=== PATIENT | female | born 1980 | race American Indian/Alaskan Native ===

== ENCOUNTER 2017-12-24 11:12 | Observation (INO) | payer OTHER ==
[2017-12-24] MEDS ORDERED: SODIUM CHLORIDE FLUSH SYRINGE 10 ML IV PRN (11:14)
[2017-12-24] MEDS ORDERED: MOTRIN PO PRN (11:14)
[2017-12-24] MEDS ORDERED: TYLENOL PO PRN (11:14)
[2017-12-24] MEDS ORDERED: ZOFRAN IV PRN (11:14)
--- NOTE | 2017-12-24 11:18 | History and Physical Report ---
History of Present Illness Date of examination: 12/24/17 Date of admission: 12/24/2017 Chief complaint: here for pp visit History of present illness: History of Present Illness: pt presents for post visit: no c/o.....magdiel depo provera given 11/12/2017 at [facility] per pt 2nd BP: 160/110.....magdiel 3rd BP: 142/100.....TReynolds Pt denies any headaches or blurry vision. She states she is doing well. I d/w elevation in blood pressrue and concern about pp pre E and need for admission. Pt advised of magnesium drip, bp meds , labs to be drawn once admitted. All risk /benefits/alternatives were d/w pt and questions were addressed and answered. She expressed understanding. Vital Signs: Patient Profile: 37 Years Old Female Height: 66 inches Weight: 119 pounds BMI: 19.21 BP sittin / 110 (left arm) Menstrual History: LMP - Character: no period since del; breast feeding Current Method of Contraception: Depo-Provera Date of Last Pap Smear: 07/21/2017 Past History : 7 Term Births: 4 Premature Births: 0 Living Children: 4 Para: 3 Mult. Births: 0 Prev : 2 Aborta: 3 Elect. Ab: 2 Spont. Ab: 1 # 1 Delivery type: EAB # 2 Delivery type: EAB # 3 Delivery date: 1998 Weeks Gestation: term Delivery type: Anesthesia type: epidural Delivery location: [place] Sex: Male weight: 6#8 Comments: no complications # 4 Delivery date: 2005 Weeks Gestation: term Delivery type: Sex: Male weight: 8#10 Comments: failure to progress # 5 Delivery date: 2014 Delivery type: SAB # 6 Delivery date: 2016 Weeks Gestation: term Delivery type: Delivery location: [place] Inf[place] Sex: Female weight: 6#4 Comments: scheduled repeat # 7 Delivery date: 11/10/2017 Weeks Gestation: 39.4 Delivery type: Anesthesia type: epidural Delivery location: [facility] Sex: male weight: 7.75 Comments: none [employer] SYSTEMS INTEGRATOR History Operations: positive x3 Abnormal PAP: negative Infection History HIV Risk Eval: no Personal hx. of genital herpes: yes Partner hx. of genital herpes: no Hx of STD: HSV Other: no out breaks, HSV + titers Active Medications: PNV () Current Allergies: No known allergies Past Medical History: Reviewed history from 07/18/2017 and no changes required: Negative Past Medical History Past Surgical History: positive x3 Family History Summary: Reviewed history and no changes required: 12/24/2017 General Comments - FH: no known family medical hx Social History: Reviewed history from 07/18/2017 and no changes required: SAHM no ETOH/Drugs/Smoking Risk Factors: PAP Smear History: Date of Last PAP Smear: 07/21/2017 Review of Systems General Denies fever, chills, sweats, anorexia, fatigue, weakness, malaise, weight loss and sleep disorder. Denies nausea, vomiting, headache, swelling of legs, abdominal pain, vaginal discharge, vaginal bleeding and contractions. Denies vaginal discharge, incontinence, dysuria, hematuria, urinary frequency, amenorrhea, menorrhagia, abnormal vaginal bleeding, pelvic pain, genital sores, decreased libido, painful periods, painful sex, urinary urgency, hot flashes, vaginal dryness, vaginal itching and vaginal odor. CV Denies chest pains, palpitations, syncope, dyspnea on exertion, orthopnea, PND and peripheral edema. Resp Denies cough, dyspnea at rest, excessive sputum, hemoptysis, wheezing and pleurisy. GI Denies nausea, vomiting, diarrhea, constipation, change in bowel habits, abdominal pain, melena, hematochezia, jaundice, gas/bloating, indigestion/ heartburn, dysphagia and odynophagia. Endo Denies cold intolerance, heat intolerance, polydipsia, polyphagia, polyuria and unusual weight change. Breast Denies left breast lump, right breast lump, nipple discharge, bloody discharge from nipple, breast pain, abnormal mammogram and breast enlargement. MS Denies back pain, joint pain, joint swelling, muscle cramps, muscle weakness, stiffness, arthritis, sciatica, restless legs, leg pain at night and leg pain with exertion. Derm Denies rash, itching, dryness and suspicious lesions. Neuro Denies paralysis, paresthesias, headache, seizures, tremors, vertigo, transient blindness, frequent falls, frequent headaches and difficulty walking. Psych Denies depression, anxiety, irritability and mood swings. Eyes Denies blurring, diplopia, irritation, discharge, vision loss, eye pain and photophobia. ENT Denies earache, ear discharge, tinnitus, decreased hearing, nasal congestion, nosebleeds, sore throat and hoarseness. Allergy Denies urticaria, allergic rash, hay fever and recurrent infections. Heme Denies abnormal bruising, bleeding and enlarged lymph nodes. [Labs In-House] Physical Exam Appearance: well developed, well nourished, no acute distress Other Exams Breast exam: no masses or nipple discharge Lungs: no rales, rhonchi, or wheezes Heart: S1, S2, no murmur, rub, or gallop Abdomen: soft, non-tender, no masses, bowel sounds normal; incision well healed. no s/ sx of infection Extremities: normal alignment, no joint enlargement, crepitus, masses or tenderness; normal tone and strength Past History Past Medical History: no pertinent history Past Surgical History: section. denies: colorectal surgery [employer]S INTEGRATOR History: abnormal PAP smear Family/Genetic History: none Social history: no significant social history, - Obstetrical History : 7 Medications and Allergies Allergies Allergy/AdvReac Type Severity Reaction Status Date / Time No Known Allergies Allergy Unverified 11/10/17 10:26 Home Medications Medication Instructions Recorded Confirmed Last Taken Type Ibuprofen 800 mg PO Q6HR #30 tablet 11/10/17 Unknown Rx Lidocain2.5%/Prilocai2.5% [Emla] 2 gm TP ONCE #1 tube 11/10/17 Unknown Rx oxyCODONE /ACETAMINOPHEN [Percocet 1 tab PO Q4HR #30 tab 11/10/17 Unknown Rx 5/325] Active Meds: Active Medications Acetaminophen (Tylenol) 650 mg PO Q4H PRN PRN Reason: Pain MILD(1-3)/Fever >100.5/STARR Magnesium Sulfate (Magnesium Sulfate 40gm/1000ml) 40 gm in 1,000 mls @ 50 mls/ hr IV DIRECT JERO Ibuprofen (Motrin) 600 mg PO Q6H PRN PRN Reason: Pain, Mild (1-3) Ondansetron HCl (Zofran) 4 mg IV Q8H PRN PRN Reason: Nausea And Vomiting Sodium Chloride (Sodium Chloride Flush Syringe 10 Ml) 10 ml IV BID JERO Sodium Chloride (Sodium Chloride Flush Syringe 10 Ml) 10 ml IV PRN PRN PRN Reason: LINE FLUSH Review of Systems All systems: negative - Physical Exam Cardiovascular: Normal S1, Normal S2 Lungs: Positive: Clear to auscultation, Normal air movement Abdomen: Positive: normal appearance, soft, guarding, other (incision c/d/i). Negative: distention, tenderness Genitourinary (Female): Positive: normal external genitalia, normal perenium Results All other labs normal. 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
[2017-12-24] MEDS: LACTATED RINGERS 1,000 ML IV SCH (14:15)
[2017-12-24] MEDS: MAGNESIUM SULFATE 40GM/1000ML 40 GM/1,000 ML BAG IV SCH (14:30)
[2017-12-24 14:33] LABS: Hematocrit 44.5 % (30.3-42.9); Hemoglobin 14.8 gm/dl (10.1-14.3); Mean Corpuscular HGB Conc 33 % (30-34); Mean Corpuscular Hemoglobin 30 pg (28-32); Mean Corpuscular Volume 89 fl (79-97); Red Blood Count 5.01 M/mm3 (3.65-5.03); Red Cell Distribution Width 13.3 % (13.2-15.2)
[2017-12-24 15:00] LABS: Alanine Aminotransferase 16 units/L (7-56); Uric Acid 3.6 mg/dL (3.5-7.6)
[2017-12-24 15:07] LABS: Platelet Count 317 K/mm3 (140-440)
[2017-12-24 20:14] LABS: Bilirubin,Urine NEG (Negative); Blood,Urine LG (Negative); Color,Urine Yellow (Yellow); Mucus,Urine FEW /HPF; Urobilinogen,Urine < 2.0 mg/dL (<2.0)
[2017-12-24 20:15] LABS: RBC,Urine > 182.0 /HPF (0.0-6.0)
[2017-12-24] MEDS: SODIUM CHLORIDE FLUSH SYRINGE 10 ML IV SCH (21:38)
[2017-12-25] MEDS: LACTATED RINGERS 1,000 ML IV SCH ×2 (02:52→14:47)
--- NOTE | 2017-12-25 06:35 | Progress Note ---
Subjective Date of service: 12/25/17 ( PreE) Principal diagnosis: 44days post delivery with PP PreE Interval history: Pt resting and children present in room. BP 150-140/100s Pt denies STARR, blurred vision, chest pain. MGSO4 @ 2gm/hr will complete 24hr @ 1430 Consulted with Will add Labetalol 200mg po BID for BP control. Pt is aware Continue POC. Will report to Objective - Constitutional Vitals: Vital Signs - 12hr 12/24/17 12/24/17 12/24/17 20:40 21:30 22:20 Temperature 98.7 F 98.0 F Pulse Rate 87 76 Respiratory 20 18 18 Rate Blood Pressure 138/95 Blood Pressure 153/95 156/101 [Right] 12/25/17 12/25/17 12/25/17 00:20 02:32 04:30 Temperature 98.0 F 98.4 F 98.6 F Pulse Rate 82 96 H 65 Respiratory 18 18 18 Rate Blood Pressure Blood Pressure 147/92 150/103 149/101 [Right] 12/25/17 12/25/17 06:28 06:30 Temperature Pulse Rate Respiratory 18 Rate Blood Pressure 129/89 Blood Pressure 129/89 [Right] - Labs CBC & Chem 7: 12/24/17 13:24 12/24/17 13:24 Labs: Abnormal lab results 12/24/17 12/24/17 12/24/17 Range/Units 13:24 13:24 18:30 WBC 12.4 H (4.5-11.0) K/mm3 Hgb 14.8 H (10.1-14.3) gm/dl Hct 44.5 H (30.3-42.9) % Creatinine 0.5 L (0.7-1.2) mg/dL Lactate Dehydrogenase 305 H (91-180) units/L Urine WBC (Auto) 47.0 H (0.0-6.0) /HPF
[2017-12-25] MEDS: NORMODYNE PO SCH ×2 (09:04→22:12)
[2017-12-25] MEDS: SODIUM CHLORIDE FLUSH SYRINGE 10 ML IV SCH ×2 (09:05→22:13)
[2017-12-25] MEDS: MAGNESIUM SULFATE 40GM/1000ML 40 GM/1,000 ML BAG IV SCH (10:27)
--- NOTE | 2017-12-25 21:46 | Event Note ---
Date: 12/25/17 Patient ambulating in room, no family present, no complaints Afeb VSS If BP still <130/90. will consider holding labetalol tonight and observe. Patient voiced understanding and agrees with plan of care
--- NOTE | 2017-12-26 08:19 | Discharge Summary ---
Providers - Providers Date of Admission: 12/24/17 13:07 Date of discharge: 12/26/17 (desires d/c home) Attending physician: VERNON TOWNSEND Primary care physician: VERNON TOWNSEND Hospitalization Reason for admission: hypertension Condition: Good Hospital course: readmit for b/p control Disposition: DC-01 TO HOME OR SELFCARE - Discharge Diagnoses (1) hypertension Status: Acute Core Measure Documentation - Palliative Care Palliative Care/ Comfort Measures: Not Applicable - Core Measures Any of the following diagnoses?: none Exam - Constitutional Vitals: Temp Pulse Resp BP Pulse Ox 98.7 F 58 L 18 116/67 99 12/26/17 05:44 12/26/17 05:44 12/26/17 05:44 12/26/17 05:44 12/26/17 05:44 General appearance: Present: no acute distress, well-nourished - EENT Eyes: Present: PERRL ENT: hearing intact, clear oral mucosa - Neck Neck: Present: supple, normal ROM - Respiratory Respiratory effort: normal Respiratory: bilateral: CTA - Cardiovascular Heart Sounds: Present: S1 & S2. Absent: rub, click - Extremities Extremities: pulses symmetrical, No edema Peripheral Pulses: within normal limits - Abdominal General gastrointestinal: Present: soft, non-tender, non-distended, normal bowel sounds Female genitourinary: Present: normal - Integumentary Integumentary: Present: clear, warm, dry - Musculoskeletal Musculoskeletal: gait normal, strength equal bilaterally - Psychiatric Psychiatric: appropriate mood/affect, intact judgment & insight - Neurologic Neurologic: CNII-XII intact, moves all extremities - Additional findings Additional findings: denies STARR, blurred vision or epigastric pain. b/p well controlled on labetalol Plan Activity: no restrictions Diet: regular Follow up with: VERNON TOWNSEND MD [Primary Care Provider] - 7 Days (Please check blood pressure twice daily and call for any blood pressures greater than 140/90. Follow up in the office in 1 week.) Prescriptions: Labetalol [Normodyne TAB] 200 mg PO BID #60 tablet
[2017-12-26 09:22] VITALS: BP 127/67
== END 2017-12-26 12:55 | disposition home or self-care (01) ==
LOC: UNDOADMOB 11:12 → 3A 11:12 → OB 13:07
PROVIDERS: ADMIT Obstetrics & Gynecology; ATTEND Obstetrics & Gynecology
DX: I10 Essential (primary) hypertension (principal)
CPT/HCPCS: 36415; 81001; 82565; 83615; 84450; 84460; 84550; 85027; 96365; 96366; G0378; G0379; J3475; J7120